=== PATIENT | male | born 1935 | race Caucasian/White ===

== ENCOUNTER 2016-11-05 20:50 | Emergency (ER) | payer MEDICARE, BC | END 2016-11-05 21:46 | disposition left against medical advice (07) | LOC: ER 20:50 | DX: Z53.21 Procedure and treatment not carried out due to patient leaving prior to being seen by health care provider (principal) ==

== ENCOUNTER 2016-12-14 14:16 | Emergency (ER) | payer MEDICARE, BC ==
[2016-12-14 15:10] LABS: Urine Appearance Clear; Urine Bilirubin Negative (NEGATIVE); Urine Blood Negative /ul (NEGATIVE); Urine Color Yellow; Urine Ketone Negative (NEGATIVE); Urine Protein Negative (NEGATIVE); Urine pH 6.5 pH (5.0-7.0)
[2016-12-14 15:11] LABS: Urine Bacteria None Seen; Urine Nitrite Negative (NEGATIVE); Urine RBC None Seen /hpf (0-5); Urine Urobilinogen Normal (NORMAL); Urine WBC None Seen /hpf (0-5)
[2016-12-14 15:15] VITALS: BP 142/80
--- NOTE | 2016-12-14 15:45 | ERNOTE ---
Back Pain ER HPI Date of Service: 12/14/16 Time Seen by Provider: 12/14/16 14:21 Source: patient Exam Limitations: other - patient seems to have some mild memory problems. Immunizations: IMMUNIZATION HX History of Influenza Vaccine Yes Home Medications: HOME MEDICATIONS Aspirin 325 mg PO DAILY 12/14/16 [Last Taken Unknown] Losartan/Hydrochlorothiazide [Losartan-Hctz 100-12.5 mg Tab] 1 each PO DAILY 09/19 [Last Taken Unknown] Metformin HCl [Metformin HCl ER] 1,000 mg PO BID 12/14/16 [Last Taken Unknown] Methocarbamol [Robaxin] 500 mg PO TID PRN #12 tablet 12/14/16 [Last Taken Unknown] Omeprazole 40 mg PO DAILY 12/14/16 [Last Taken Unknown] Potassium Chloride [Klor-Con 10] 10 meq PO TID 12/14/16 [Last Taken Unknown] Propranolol HCl [Inderal LA] 160 mg PO BID 12/14/16 [Last Taken Unknown] Simvastatin [Zocor] 20 mg PO HS 12/14/16 [Last Taken Unknown] Terazosin HCl [Hytrin] 5 mg PO HS 12/14/16 [Last Taken Unknown] Narrative: patient presents to the ED for low back pain. He relates that he has had this for some time and had x-rays a few months ago for this. It hurts in his low back and is worse with movement. No radiation of the pain. He had been taking ibuprofen for it and it was working but he was told to stop that and he is not sure why, Has been taking Tylenol. No new N/T/W. No loss of bowel or bladder control. Rest improves this pain, worse with twisting. This is just like the pain he has been having, nothing different about it. No abdominal pain. No CP or SOB. Timing: Reports: other - fluctuating intensity Quality/Severity: Reports: moderate Location of pain: Reports: lower back Activities at Onset: Reports: other - no fall, no trauma Recent Injury?: Reports: no Possible Precipitating Factor: Reports: none Modifying Factors - (Improves): Reports: other - rest Modifying Factors - (Worsens): Reports: other - movement Associated Symptoms: Denies: fever/chills, constipation/incontinence, nausea/ vomiting, problems urinating, difficulty walking, numbess/weakness in legs Prior Treament: Denies: recently seen Review of Systems - Review of Systems Constitutional: Absent: fever Respiratory: Absent: shortness of breath Cardiology: Absent: chest pain Gastrointestinal/Abdominal: Absent: abdominal pain Genitourinary: Absent: dysuria - Patient's Past Medical History Patient History - Medical: Diabetes Type 1, GERD Patient History - Cardiac/Respiratory: Hypertension, Hyperlipidemia Patient History - Cancer: No Hx of Cancer Patient History - Surgical Procedures: No surgical history Patient History - Other: None - Social History Living Situations: home Psych History: No pertinent hx - Immunizations History of Influenza Vaccine: Yes Physical Exam - Physical Exam General Appearance: Present: alert, no apparent distress Eye Exam: Normal inspection: bilateral Ears, Nose, Throat: Present: normal ENT inspection Neck: Present: normal inspection Respiratory: Present: no respiratory distress, no accessory muscle use, lungs clear Cardiovascular/Chest: Present: regular rate, rhythm Gastrointestinal/Abdominal: Present: normal bowel sounds, nontender, soft. Absent: no organomegaly, tenderness Back Exam: Present: other - There is completely reproducible tenderness bilateral low back musculature. No vertebral tendenress. No CVA tenderness. Clinically this is completely reproducible in the muscualture.. Absent: vertebral tenderness Extremity Exam: Present: normal range of motion Neurological Exam: Present: alert, no motor/sensory deficits, parking patroller II-XII nml as tested, other - Gait stable. No motor deficits. Nop cauda equina syndrome. Absent: motor weakness Skin Exam: Absent: skin rash ED Progress - Results and Orders Patient's Lab Results:: I have reviewed the patient's lab results. - Vital Signs Patient's Vital Signs:: I have reviewed the patient's vital signs. Vital Signs: Vital Signs 12/14/16 12/14/16 14:19 15:14 Temperature 36.3 C L Pulse Rate 75 78 Respiratory 12 12 Rate Blood Pressure 140/81 142/80 O2 Sat by Pulse 96 98 Oximetry - Progress/Reassessment Chief Complaint: Back Pain Progress Note-Subjective: 12/14/16 15:41 Nothing to suggest need for repeat imaging, nothing to suggest infectious process. No neuro deficits or cauda equina syndrome. Nothing to suggest intraabdominal process. He wishes to go home. Will utilize muscle relaxant. I discussed warning signs and reasons to return as well as the need for close f/u. Departure Clinical Impression: Back pain - Departure Disposition: Home self-care Condition: Stable Instructions: Back Pain, Adult Additional Instructions: Muscle relaxant as directed. Follow-up with your doctor in 2-3 days for a re- check. Return here for fever, numbness, tingling, weakness or if your condition worsens or changes in any way. Referrals: Sumeet Perry MD [Primary Care Provider] - Prescriptions: Methocarbamol [Robaxin] 500 mg PO TID PRN #12 tablet PRN Reason: Pain
== END 2016-12-14 15:49 | disposition home or self-care (01) ==
LOC: ER 14:16
DX: M54.5 Low back pain (principal); I10 Essential (primary) hypertension; E78.5 Hyperlipidemia, unspecified; K21.9 Gastro-esophageal reflux disease without esophagitis

== ENCOUNTER 2016-12-24 06:07 | Emergency (ER) | payer MEDICARE, BC ==
[2016-12-24 06:16] VITALS: BP 141/68
[2016-12-24] MEDS ORDERED: SODIUM CHLORIDE FOR INHALATION 3 ML VIAL.NEB IH ONE (06:24)
--- NOTE | 2016-12-24 06:28 | ERNOTE ---
Medical Problem HPI - General Chief Complaint: General Assessment Time Seen by Provider: 12/24/16 06:17 Source: patient, old records - Immun/Allergies/Home Medications Immunizations: IMMUNIZATION HX Immunizations Up to Date Yes History of Influenza Vaccine Yes Hx Pneumococcal Vaccination Yes Allergies/Adverse Reactions: Allergies Penicillins Allergy (Verified 12/24/16 06:16) dust mite Allergy (Uncoded 12/24/16 06:16) Home Medications: HOME MEDICATIONS Aspirin 325 mg PO DAILY 12/14/16 [Last Taken Unknown] Losartan/Hydrochlorothiazide [Losartan-Hctz 100-12.5 mg Tab] 1 each PO DAILY 09/19 [Last Taken Unknown] Metformin HCl [Metformin HCl ER] 1,000 mg PO BID 12/14/16 [Last Taken Unknown] Methocarbamol [Robaxin] 500 mg PO TID PRN #12 tablet 12/14/16 [Last Taken Unknown] Omeprazole 40 mg PO DAILY 12/14/16 [Last Taken Unknown] Potassium Chloride [Klor-Con 10] 10 meq PO TID 12/14/16 [Last Taken Unknown] Propranolol HCl [Inderal LA] 160 mg PO BID 12/14/16 [Last Taken Unknown] Simvastatin [Zocor] 20 mg PO HS 12/14/16 [Last Taken Unknown] Terazosin HCl [Hytrin] 5 mg PO HS 12/14/16 [Last Taken Unknown] - History of Present History Narrative: Pt states he awoke to phlegm in his throat. He was able to get some of it out but has been unable to get the rest out. Timing: constant Severity: mild Review of Systems - Review of Systems Constitutional: Present: recent illness - a cold for about a month. Absent: fever, chills EYE: Present: no symptoms reported ENT: Present: nose congestion, nasal drainage Respiratory: Present: cough. Absent: shortness of breath, orthopnea Cardiology: Present: no symptoms reported Gastrointestinal/Abdominal: Present: other - no difficulty swallowing Genitourinary: Present: no symptoms reported Musculoskeletal: Present: no symptoms reported Skin: Present: no symptoms reported Neurological: Present: no symptoms reported Endocrine: Present: no symptoms reported Hematologic/Lymphatic: Present: no symptoms reported Psych: Present: no symptoms reported - Patient's Past Medical History Patient History - Medical: Diabetes Type 1, GERD Patient History - Cardiac/Respiratory: Hypertension, Hyperlipidemia Patient History - Cancer: No Hx of Cancer Patient History - Surgical Procedures: No surgical history Patient History - Other: None - Social History Living Situations: home Psych History: No pertinent hx Smoking Status: Former smoker - Immunizations Immunizations Up to Date: Yes Hx Pneumococcal Vaccination: Yes History of Influenza Vaccine: Yes Physical Exam - Physical Exam General Appearance: Present: wd/wn, alert, no apparent distress Eye Exam: Normal inspection: bilateral, PERRL: bilateral Ears, Nose, Throat: Present: nasal congestion - b/l with mild erythema, other - minimal PND. Absent: pharyngeal erythema Neck: Present: normal inspection, nontender Respiratory: Present: no respiratory distress, normal breath sounds, no accessory muscle use, chest nontender, lungs clear Cardiovascular/Chest: Present: regular rate, rhythm, no murmur, normal peripheral pulses Extremity Exam: Present: normal inspection, normal range of motion Neurological Exam: Present: alert, oriented, normal mood/affect, no motor/ sensory deficits Skin Exam: Present: normal color, warm/dry Lymphatic Exam: Present: no adenopathy ED Progress - Vital Signs Patient's Vital Signs:: I have reviewed the patient's vital signs. Vital Signs: Vital Signs 12/24/16 06:10 Temperature 35.4 C L Pulse Rate 83 Respiratory 18 Rate Blood Pressure 141/68 O2 Sat by Pulse 94 Oximetry - Progress/Reassessment Chief Complaint: General Assessment Departure - Departure Clinical Impression: Upper respiratory infection Qualifiers: URI type: acute nasopharyngitis (common cold) Qualified Code(s): J00 - Acute nasopharyngitis [common cold] Disposition: Home self-care Condition: Good Instructions: Upper Respiratory Infection, Adult, [id number] Additional Instructions: Take mucinex or generic equivalent twice a day until feeling better. Follow up with your regular doctor if not improving Referrals: Sumeet Perry MD [Primary Care Provider] -
== END 2016-12-24 06:55 | disposition home or self-care (01) ==
LOC: ER 06:07
DX: J00 Acute nasopharyngitis [common cold] (principal); Z87.891 Personal history of nicotine dependence

== ENCOUNTER 2017-02-14 11:10 | Day surgery (SDC) | payer MEDICARE, BC ==
[~2017-02-14 11:10] MED LIST: ACETAMINOPHEN WITH CODEINE 1 EACH TABLET PO PRN; ONDANSETRON HCL/PF 2 MG/ML VIAL IV PRN; RINGER'S SOLUTION,LACTATED 1,000 ML IV PRN; ceFAZolin SODIUM 1 GM in DEXTROSE 5 % IN WATER 100 ML IV PRN; oxyCODONE HCL/ACETAMINOPHEN 1 TAB TABLET PO PRN
[2017-02-14] MEDS ORDERED: ceFAZolin SODIUM 1 GM in DEXTROSE 5 % IN WATER 100 ML IV PRN ×2 (11:42)
[2017-02-14] MEDS ORDERED: RINGER'S SOLUTION,LACTATED 1,000 ML IV ONE (12:06)
[2017-02-14] MEDS ORDERED: BUPIVACAINE HCL 50 ML VIAL IJ ONE ×2 (12:35)
[2017-02-14] MEDS ORDERED: BACITRACIN ZINC 30 APPL TUBE TP ONE (12:48)
[2017-02-14 14:52] VITALS: BP 124/65
== END 2017-02-14 11:11 | disposition home or self-care (01) ==
LOC: AMB 11:10
PROVIDERS: ATTEND Urology
PROC: 0VTTXZZ Resection of Prepuce, External Approach (ICD-10-PCS; principal; 2017-02-14 12:00)
DX: N48.1 Balanitis (principal); N47.1 Phimosis; Z68.35 Body mass index [BMI] 35.0-35.9, adult; Z87.891 Personal history of nicotine dependence

== ENCOUNTER 2017-06-09 08:04 | Inpatient (IN) | payer MEDICARE, BC ==
[~2017-06-09 08:04] MED LIST changes: -ACETAMINOPHEN WITH CODEINE 1 EACH TABLET PO PRN; +MORPHINE SULFATE 15 MG TABLET.SA PO PRN; -ONDANSETRON HCL/PF 2 MG/ML VIAL IV PRN; -RINGER'S SOLUTION,LACTATED 1,000 ML IV PRN; +ROPIVACAINE HCL/PF 100 MG, KETOROLAC TROMETHAMINE 30 MG, EPINEPHrine 0.2 MG in NORMAL S... IJ PRN; +TRANEXAMIC ACID 1,000 MG in NORMAL SALINE 100 ML IV PRN; +ceFAZolin SODIUM 1 GM VIAL IV PRN; -ceFAZolin SODIUM 1 GM in DEXTROSE 5 % IN WATER 100 ML IV PRN; -oxyCODONE HCL/ACETAMINOPHEN 1 TAB TABLET PO PRN
[2017-06-09] MEDS: RINGER'S SOLUTION,LACTATED 1,000 ML IV PRN ×4 (09:05→19:42)
--- NOTE | 2017-06-09 11:04 | PREOP NOTE ---
Preoperative Progress Note - Preoperative Changes Changes to Preop Condition?: No Changes
[2017-06-09] MEDS ORDERED: RINGER'S SOLUTION,LACTATED 1,000 ML IV ONE ×2 (12:00→13:29)
[2017-06-09] MEDS ORDERED: MAG HYDROX/ALUMINUM HYD/SIMETH 30 ML UDC PO PRN (14:29)
[2017-06-09] MEDS ORDERED: PROMETHAZINE HCL 5 MG in DEXTROSE 5 % IN WATER 50 ML IV PRN ×2 (14:29)
[2017-06-09] MEDS ORDERED: MAGNESIUM HYDROXIDE 30 ML UDC PO PRN (14:29)
[2017-06-09] MEDS ORDERED: ZOLPIDEM TARTRATE 5 MG TABLET PO PRN (14:29)
[2017-06-09] MEDS ORDERED: HYDROmorphone HCL 1 MG/ML DISP.SYRIN IV PRN (14:29)
[2017-06-09] MEDS ORDERED: ACETAMINOPHEN 500 MG TABLET PO PRN (14:29)
--- NOTE | 2017-06-09 14:34 | OR ---
Operative Report - Dictated Report Narrative: Date: 06/09/2017 Preoperative diagnosis: Right Knee degenerative joint disease. Postoperative diagnosis: Right Knee degenerative joint disease. Procedure: Right Total knee arthroplasty. Surgeon: Shoaib Florian M.D. [employer] Service Rater: Shawn Hwang PA-C Anesthesia: Spinal with regional block and local periarticular joint injection. Complications: None Specimens: Bone for disposal. Estimated blood loss: Minimal. Tourniquet time: 120 Minutes at 325 millimeters of mercury. Retained implants: Depuy Attune size 7 right lugged cemented posterior stabilized femoral component. Size 7 fixed-bearing cemented tibial platform. 7 by 8 millimeter posterior stabilized cross-linked tibial insert. 41 millimeter medialized patella button. Indications: Mr. Xie is a 81-year-old gentleman who has bilateral knee pain and arthrosis with a right greater than left this time. He wanted to have his right knee worked on. This patient was followed in my clinic for period of time with significant complaints of right knee pain consistent with arthritic changes. He had failed conservative measures including, but not limited to, activity modification, passage of time, medications, and other conservative measures. Patient wished to proceed with surgical treatment. The risks, benefits, and alternatives were discussed in clinic. The risks of , blood clots, bleeding, infection, nerve/tendon blood vessel/ injury, malposition of components, intraoperative fracture, postoperative limited range of motion, persistent pain, failure of components, and need for additional procedures. Patient wished to proceed consent was obtained after answering all questions. Procedure: After marking the correct extremity on the floor, the patient was taken to the operating room. A timeout was performed. IV antibiotics consisting of Ancef were administered prior to the procedure. A regional followed by spinal anesthetic was induced by anesthesia, per my request, on the operative table with all bony prominences well-padded. Seals catheter was placed, and a bump was placed under the operative side buttock. SCDs and HUDSON hose were utilized on the nonoperative leg. A well-padded tourniquet was applied to the operative thigh. The operative leg was then pre-scrubbed with alcoho,l prepped, and draped in a standard sterile fashion. After exsanguinating the extremity with an Esmarch bandage, the tourniquet was inflated. After marking out the anterior knee for standard incision centered over the patella, the skin was incised and dissected down to the joint retinaculum. The joint retinaculum was marked out as well as the horizontal axis of the patella, and a standard medial parapatellar arthrotomy was then made. The most proximal aspect of the quadriceps tendon and the patella tendon insertion were protected from release. A partial synovectomy was performed as well as a resection of the infrapatellar fat pad. The distal femoral fat pad proximal to the trochlea was also resected using cautery. The soft tissues were elevated off the medial aspect of the proximal tibia using a Ronquillo elevator ensuring that we did not transect the medial collateral ligament. Upon initial evaluation range of motion was approximately 10 degrees to 100 degrees of flexion. There were signs of advanced arthrosis in the medial, lateral, and patellofemoral joint spaces. There were large marginal osteophytes which were removed with a rongeur. The knee was hyperflexed and the patella was tucked laterally. Protecting the surrounding soft tissues with Homans, an entry drill was placed down the femoral canal using Whitesides line for guidance into the entry point. The intramedullary femoral alignment tg was utilized in order to cut the distal femur in 5 degrees of valgus resecting 12 millimeters of bone. Next the distal femur was sized to a size 7. A posterior referencing guide was utilized to place the distal femoral cutting block in 3 degrees of external rotation. This was pinned into place. The rotation was confirmed both visually and based on anatomic landmarks. The 4 in 1 cutting jig of the appropriate size was utilized in order to make all bony cuts. The angle wing was used to ensure no notching. Retractors were utilized in order to protect surrounding soft tissues. This cut did not result in any excessive notching. We then cut the box centered over the distal femur. This allowed for resection of the anterior and posterior cruciate ligaments. I then turned my attention to the preparation of the tibia. Using an extra medullary tibial alignment tg, 4 millimeters of bone was resected off the medial articular surface. This was made perpendicular to the mechanical axis of the joint with the alignment tg centered over the ankle mortise. The alignment tg was checked and was noted to be parallel to the mechanical axis, centered over the medial one third of the tibial tubercle, paralleling the anterior surface of the tibia. We then turned our attention to the remaining meniscus and soft tissues. These were removed while protecting the surrounding ligaments and soft tissues. The marginal osteophytes off the anterior, posterior, medial, lateral aspects of the femur and tibia were removed. The tibia was sized out to a size 7. Next the tibia was drilled and punched in an externally rotated position. Next the trial femur and a series of tibial inserts were utilized in order to allow for full extension and maximal flexion. It was found that a 8 millimeter insert gave the best range of motion and stability at multiple flexion points as well as at full extension there was less than 2 mm of gapping both medially and laterally. There is minimal anterior translation with the knee at 90 degrees of flexion and no signs of being able to dislocate the knee. The patella was then prepared. The initial thickness was 24 millimeters. This was reamed down to 14 millimeters parallel to the anterior surface of the patella. It was sized out to a size 41 medialized patella button. This was then drilled and trialed. Without any medial restraint the patella tracked appropriately and did not sublux or dislocate. At this point, it was felt these were the appropriate sized implants, and all trials were removed. The standard periarticular joint injection consisting of ropivacaine, Toradol, and epinephrine were injected into the periarticular joint tissues. The bony surfaces were thoroughly irrigated with a pulsatile- suction saline irrigation device. A bone plug from the prior resected anterior chamfer cut was placed into the drill hole at the distal femur. The bony surfaces were then dried in preparation for placement of the implants. The cement was vacuum mixed per the guest relations executive's instructions. The cement was placed on the dry bony surfaces and posterior aspect of the implants. The implants were impacted into place, removing all extruded cement. At this point anesthesia administered tranexamic acid per protocol intravenously. The knee was placed in extension with axial loading with the trial insert while the cement cured. Once the cement cured, all remaining extruded cement was removed. The knee was placed through a range of motion with the trial insert to ensure appropriate range of motion and stability. Final range of motion was approximately 0 to 120 degrees. The knee was again thoroughly irrigated with pulsatile saline lavage. The final polyethylene insert was then impacted into place ensuring no retained soft tissues. The remaining periarticular joint injection was injected. A medium Hemovac drain was placed exiting superior laterally. The knee was then placed over a triangle and the arthrotomy was closed with interrupted #1 Vicryl after thoroughly irrigating the joint. The deep and subcutaneous tissues were closed with interrupted oh and 3-0 Vicryl respectively. Skin was closed with a running subcutaneous 3-0 Monocryl and Prineo Dermabond dressing. 4 x 4's, Sof-Rol, and a full leg Louis wrap were applied. All sponge, needle, blade, and instrument counts were correct prior to closing the wounds. Postoperative condition: The patient was awoken and transferred to the postanesthesia care unit in stable condition. Plan is to be admitted to the inpatient medical/surgical floor postoperatively for 24 hours of IV antibiotics , physical therapy, occupational therapy, and medical comanagement. Patient will be weightbearing as tolerated with range of motion as tolerated. DVT prophylaxis will be with SCDs, HUDSON hose, and pharmacological anticoagulation. Anticipated hospital stay is approximately 2-4 days.
--- NOTE | 2017-06-09 15:28 | OR ---
Anesthesia Procedure Note - Anesthesia Procedure Note Narrative: Vital Signs - Last Taken Temp 36.6 C 06/09/17 15:21 Pulse 80 06/09/17 15:21 Resp 16 06/09/17 15:21 BP 137/89 06/09/17 15:21 Pulse Ox 98 06/09/17 15:21 O2 Oxygen Delivery Method Room Air 06/09/17 15:26 ANESTHESIA PROCEDURE NOTE Date of procedure: 06/09/2017. Time of procedure: 1150. Performed by: Tito Green CRNA Decatizer: Luz Maria Hendrix RN . Preprocedure diagnosis: Right knee DJD. Postop analgesia.. Post procedure diagnosis: Same. Procedure: Ultrasound-guided right femoral nerve block. Indications: Postoperative analgesia.. Findings: Patient brought to operating room #2 and placed in the supine position. Patient was sedated. Right inguinal area was prepped with ChloraPrep. Ultrasound machine and nerve stimulator was used to identify right femoral nerve. A 22-gauge Stimuplex regional block needle was used to inject 30 mL of 0.25% Marcaine with epinephrine 1 200,000 around the femoral nerve. Images were retained. Regional block needle was removed intact. EBL: Minimal. Fluids: N/A. Specimen: N/A. Post procedure condition: The patient tolerated the procedure well. No complications were noted. Thank you for this consultation Tito Green CRNA
[2017-06-09] MEDS: KETOROLAC TROMETHAMINE 15 MG/ML VIAL IV SCH ×2 (15:29→20:45)
[2017-06-09] MEDS: ceFAZolin SODIUM 1 GM in DEXTROSE 5 % IN WATER 100 ML IV SCH ×2 (18:43)
[2017-06-09] MEDS: POTASSIUM CHLORIDE 10 MEQ TABLET.SA PO SCH (18:43)
[2017-06-09] MEDS: TAMSULOSIN HCL 0.4 MG CAP.SR.24H PO SCH (18:43)
[2017-06-09] MEDS: MORPHINE SULFATE 15 MG TABLET.SA PO SCH (20:44)
[2017-06-09] MEDS: PANTOPRAZOLE SODIUM 40 MG TABLET.EC PO SCH (20:46)
[2017-06-09] MEDS: SIMVASTATIN 20 MG TABLET PO SCH (20:46)
[2017-06-09] MEDS: SENNOSIDES/DOCUSATE SODIUM 1 TAB TABLET PO SCH (20:46)
[2017-06-09] MEDS: FINASTERIDE 5 MG TABLET PO SCH (20:52)
[2017-06-09] MEDS: oxyCODONE HCL/ACETAMINOPHEN 1 TAB TABLET PO PRN (22:48)
[2017-06-10] MEDS: ceFAZolin SODIUM 1 GM in DEXTROSE 5 % IN WATER 100 ML IV SCH ×4 (01:40→05:04)
[2017-06-10] MEDS: RINGER'S SOLUTION,LACTATED 1,000 ML IV PRN (04:27)
[2017-06-10] MEDS: KETOROLAC TROMETHAMINE 15 MG/ML VIAL IV SCH ×4 (04:28→20:40)
[2017-06-10 06:44] LABS: Hematocrit 35.3 % (42.0-52.0); Hemoglobin 11.7 gm/dL (13.5-18.0); Mean Cell Volume 92.2 fl (78-100); Mean Corpuscular Hemoglobin 30.5 pg (27-31); Mean Corpuscular Hgb Conc 33.1 g/dl (32-36); Mean Platelet Volume 9.1 fl (6.0-9.5); Platelet Count 204 K/mm3 (150-450); Red Blood Count 3.83 M/mm3 (4.7-6.0); Red Cell Distribution Width 13.2 % (11.5-14.0)
[2017-06-10 06:55] LABS: Anion Gap 9.4 mmol/L (6.8-13.8); BUN/Creatinine Ratio 13.5 (9.0-21.6); Carbon Dioxide 29.3 mmol/L (24-32.6); Estimated Creat Clear 56.7; Potassium 3.7 mmol/L (3.4-4.6)
--- NOTE | 2017-06-10 08:21 | PN ---
Subjective - Date and Time Seen Date: 06/10/17 Time: 08:16 Subjective Narrative: Reports some mild nausea this am. Did eat breakfast. Got up to chair this am for breakfast. Reports moderate pain. No other complaints. Objective Objective Narrative: Bandages C/D/I. N/V intact PF/DF ankle. Calf supple. Drain intact. - Vitals Vitals: Last Vital Signs Temp 37 C 06/10/17 07:06 Pulse 78 06/10/17 07:06 Resp 18 06/10/17 07:06 BP 132/67 06/10/17 07:06 Pulse Ox 94 06/10/17 07:06 - Abnormal Lab Findings Abnormal Lab Findings: Abnormal Lab Results 06/10/17 06/10/17 Range/Units 06:35 06:35 RBC 3.83 L (4.7-6.0) M/mm3 Hgb 11.7 L (13.5-18.0) gm/dL Hct 35.3 L (42.0-52.0) % Random Glucose 144 H (70-110) mg/dL - Exam Constitutional: Present: Alert, Cooperative, No distress Cauti Physician Documentation - Urinary Catheter Management Urethral ([place]) Date of Insertion: 06/09/17 Time of Insertion: 12:44 Assessment/Plan - Problems/Diagnosis (1) Status post total right knee replacement Problem: Acute Narrative: PT, anticoagulation, pain control, if drain output decreasing today can pull, costa out today (2) Acute blood loss anemia Problem: Acute Narrative: asymptomatic at this time, recheck labs tomorrow am (3) Diabetes 1.5, managed as type 2 Problem: Chronic (4) Hypertension Problem: Chronic (5) Hyperlipidemia Problem: Chronic (6) Benign prostatic hyperplasia (BPH) with post-void dribbling Problem: Chronic
[2017-06-10] MEDS: ONDANSETRON HCL/PF 2 MG/ML VIAL IV PRN ×2 (09:11→13:55)
[2017-06-10] MEDS: MULTIVIT-MIN/FA/LYCOPEN/LUTEIN 1 TAB TABLET PO SCH (09:12)
[2017-06-10] MEDS: MORPHINE SULFATE 15 MG TABLET.SA PO SCH ×2 (09:12→20:40)
[2017-06-10] MEDS: HYDROCHLOROTHIAZIDE 12.5 MG CAPSULE PO SCH (09:12)
[2017-06-10] MEDS: POTASSIUM CHLORIDE 10 MEQ TABLET.SA PO SCH ×3 (09:12→16:33)
[2017-06-10] MEDS: LOSARTAN POTASSIUM 50 MG TABLET PO SCH (09:12)
[2017-06-10] MEDS: ATENOLOL 50 MG TABLET PO SCH (09:13)
[2017-06-10] MEDS: FINASTERIDE 5 MG TABLET PO SCH ×2 (09:14→20:41)
[2017-06-10] MEDS: ENOXAPARIN SODIUM 40 MG/0.4 ML SYRG SC SCH (13:44)
[2017-06-10] MEDS: oxyCODONE HCL/ACETAMINOPHEN 1 TAB TABLET PO PRN (16:20)
[2017-06-10] MEDS: TAMSULOSIN HCL 0.4 MG CAP.SR.24H PO SCH (18:31)
[2017-06-10] MEDS: SIMVASTATIN 20 MG TABLET PO SCH (20:40)
[2017-06-10] MEDS: SENNOSIDES/DOCUSATE SODIUM 1 TAB TABLET PO SCH (20:40)
[2017-06-10] MEDS: PANTOPRAZOLE SODIUM 40 MG TABLET.EC PO SCH (20:41)
[2017-06-10] MEDS: diphenhydrAMINE HCL 50 MG/ML VIAL IV PRN (23:01)
[2017-06-11] MEDS: KETOROLAC TROMETHAMINE 15 MG/ML VIAL IV SCH ×2 (02:58→09:25)
[2017-06-11 05:58] LABS: Hematocrit 34.9 % (42.0-52.0); Hemoglobin 11.4 gm/dL (13.5-18.0); Mean Cell Volume 93.6 fl (78-100); Mean Corpuscular Hemoglobin 30.6 pg (27-31); Mean Corpuscular Hgb Conc 32.7 g/dl (32-36); Mean Platelet Volume 9.5 fl (6.0-9.5); Platelet Count 214 K/mm3 (150-450); Red Blood Count 3.73 M/mm3 (4.7-6.0); Red Cell Distribution Width 13.3 % (11.5-14.0); White Blood Count 8.8 K/mm3 (4.0-10.5)
[2017-06-11 06:05] LABS: Anion Gap 10.2 mmol/L (6.8-13.8); BUN/Creatinine Ratio 11.2 (9.0-21.6); Carbon Dioxide 29.7 mmol/L (24-32.6); Estimated Creat Clear 55.1; Potassium 3.9 mmol/L (3.4-4.6)
[2017-06-11] MEDS: oxyCODONE HCL/ACETAMINOPHEN 1 TAB TABLET PO PRN (06:36)
--- NOTE | 2017-06-11 08:07 | PN ---
Subjective - Date and Time Seen Date: 06/11/17 Time: 08:03 Subjective Narrative: Complaining of mild dizziness this morning no chest pain no shortness of breath Objective - Review of Systems Generalized/Overall Review: Reports: No Symptoms Reported EENTM: Reports: No Symptoms Reported Respiratory: Reports: No Symptoms Reported Cardiac: Reports: No Symptoms Reported Abdominal: Reports: No Symptoms Reported Genitourinary Symptoms: Reports: No Symptoms Reported - Vitals Vitals: Last Vital Signs Temp 36.3 C L 06/11/17 07:13 Pulse 93 06/11/17 03:11 Resp 18 06/11/17 07:13 BP 143/58 06/11/17 07:13 Pulse Ox 95 06/11/17 07:13 - Abnormal Lab Findings Abnormal Lab Findings: Abnormal Lab Results 06/11/17 06/11/17 Range/Units 05:30 05:30 RBC 3.73 L (4.7-6.0) M/mm3 Hgb 11.4 L (13.5-18.0) gm/dL Hct 34.9 L (42.0-52.0) % Random Glucose 142 H (70-110) mg/dL - Exam Constitutional: Present: Alert, Oriented x3, Cooperative ENT Exam: Present: normal ENT inspection Respiratory: Present: lungs clear Cardiovascular/Chest: Present: regular rate, rhythm, no JVD Abdomen: Present: soft, nontender Cauti Physician Documentation - Urinary Catheter Management Urethral (Seals) Date of Insertion: 06/09/17 Time of Insertion: 12:44 Date of Removal: 06/10/17 Time of Removal: 11:45 Assessment/Plan Plan Narrative: continue diet and metformin - Problems/Diagnosis (1) Diabetes Problem: Acute Qualifiers: Diabetes mellitus type: type 2 Diabetes mellitus complication status: without complication (2) Diabetes 1.5, managed as type 2 Problem: Chronic
[2017-06-11] MEDS: MULTIVIT-MIN/FA/LYCOPEN/LUTEIN 1 TAB TABLET PO SCH (08:45)
[2017-06-11] MEDS: LOSARTAN POTASSIUM 50 MG TABLET PO SCH (08:46)
[2017-06-11] MEDS: POTASSIUM CHLORIDE 10 MEQ TABLET.SA PO SCH ×3 (08:47→16:57)
[2017-06-11] MEDS: HYDROCHLOROTHIAZIDE 12.5 MG CAPSULE PO SCH (08:48)
[2017-06-11] MEDS: ATENOLOL 50 MG TABLET PO SCH (08:48)
[2017-06-11] MEDS: MORPHINE SULFATE 15 MG TABLET.SA PO SCH ×2 (08:48→20:21)
--- NOTE | 2017-06-11 10:10 | PN ---
Subjective - Date and Time Seen Date: 06/11/17 Time: 10:07 Subjective Narrative: Subjective: Reports minimal pain. Was able to walk in the [place] with therapy. Pain is well-controlled. Voiding without any complications. Tolerating by mouth intake. Denies any nausea or vomiting. Denies calf pain. Slept well. Physical exam: Alert and oriented to person, place and time Right lower Extremity: Palpable dorsalis pedis pulse. Sensation grossly intact to light touch. Dressings clean and dry. Able to flex and extend ankle and toes. No excessive drainage. Calf and thigh are soft and nontender. Assessment: Postop day 2 status post right total knee arthroplasty. Plan: Continue with physical and occupational therapy weightbearing as tolerated. Continue with anticoagulation. Pain control with goal to rely on oral medications. Continue bowel regimen. Will need 6 weeks with walker or assitive device to protect joint while ambulating during the recovery process. Discharge planning. Okay to discharge to home once he is able to do stairs. Objective - Vitals Vitals: Last Vital Signs Temp 36.3 C L 06/11/17 07:13 Pulse 84 06/11/17 08:48 Resp 18 06/11/17 07:13 BP 143/58 06/11/17 08:48 Pulse Ox 95 06/11/17 07:13 - Abnormal Lab Findings Abnormal Lab Findings: Abnormal Lab Results 06/11/17 06/11/17 Range/Units 05:30 05:30 RBC 3.73 L (4.7-6.0) M/mm3 Hgb 11.4 L (13.5-18.0) gm/dL Hct 34.9 L (42.0-52.0) % Random Glucose 142 H (70-110) mg/dL [facility] Physician Documentation - Urinary Catheter Management Urethral (Seals) Date of Insertion: 06/09/17 Time of Insertion: 12:44 Date of Removal: 06/10/17 Time of Removal: 11:45 Assessment/Plan - Problems/Diagnosis (1) Acute blood loss anemia Problem: Acute (2) Diabetes Problem: Chronic Qualifiers: Diabetes mellitus type: type 2 Diabetes mellitus complication status: without complication (3) Status post total right knee replacement Problem: Acute (4) Benign prostatic hyperplasia (BPH) with post-void dribbling Problem: 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
[2017-06-11] MEDS: ENOXAPARIN SODIUM 40 MG/0.4 ML SYRG SC SCH (13:06)
[2017-06-11] MEDS: ONDANSETRON HCL/PF 2 MG/ML VIAL IV PRN (18:33)
[2017-06-11] MEDS: TAMSULOSIN HCL 0.4 MG CAP.SR.24H PO SCH (18:34)
[2017-06-11] MEDS: FINASTERIDE 5 MG TABLET PO SCH (20:21)
[2017-06-11] MEDS: SENNOSIDES/DOCUSATE SODIUM 1 TAB TABLET PO SCH (20:21)
[2017-06-11] MEDS: SIMVASTATIN 20 MG TABLET PO SCH (20:21)
[2017-06-11] MEDS: PANTOPRAZOLE SODIUM 40 MG TABLET.EC PO SCH (20:21)
[2017-06-11] MEDS: diphenhydrAMINE HCL 50 MG/ML VIAL IV PRN (20:46)
[2017-06-12] MEDS: oxyCODONE HCL/ACETAMINOPHEN 1 TAB TABLET PO PRN ×2 (03:17→07:44)
[2017-06-12 08:06] VITALS: BP 154/62
--- NOTE | 2017-06-12 08:22 | PN ---
Subjective - Date and Time Seen Date: 06/12/17 Time: 08:20 Subjective Narrative: no new complaint Objective - Review of Systems Generalized/Overall Review: Reports: No Symptoms Reported EENTM: Reports: No Symptoms Reported Respiratory: Reports: No Symptoms Reported Cardiac: Reports: No Symptoms Reported Abdominal: Reports: No Symptoms Reported Genitourinary Symptoms: Reports: No Symptoms Reported Skin: Reports: No Symptoms Reported Endocrine: Reports: No Symptoms Reported - Vitals Vitals: Last Vital Signs Temp 36.8 C 06/12/17 08:05 Pulse 102 H 06/12/17 08:05 Resp 20 06/12/17 08:05 BP 154/62 06/12/17 08:05 Pulse Ox 96 06/12/17 08:05 - Exam Constitutional: Present: Alert, Oriented x3, Cooperative Respiratory: Present: lungs clear Cardiovascular/Chest: Present: regular rate, rhythm Skin Exam: Present: normal color, warm/dry Appearance: Present: appropriate appearance [facility] Physician Documentation - Urinary Catheter Management Urethral (Seals) Date of Insertion: 06/09/17 Time of Insertion: 12:44 Date of Removal: 06/10/17 Time of Removal: 11:45 Assessment/Plan Plan Narrative: no change in his diabetes management - Problems/Diagnosis (1) Diabetes Problem: Chronic Qualifiers: Diabetes mellitus type: type 2 Diabetes mellitus complication status: without complication (2) Diabetes 1.5, managed as type 2 Problem: Chronic
--- NOTE | 2017-06-12 08:46 | DS ---
(1) Status post total right knee replacement Problem: Acute (2) Acute blood loss anemia Problem: Acute (3) Diabetes 1.5, managed as type 2 Problem: Chronic (4) Hypertension Problem: Chronic (5) Hyperlipidemia Problem: Chronic (6) Benign prostatic hyperplasia (BPH) with post-void dribbling Problem: Chronic Description of Stay: Mr. araya was admitted to the floor after undergoing right total knee arthroplasty. Tolerated this well. Was admitted to the floor postoperatively for 24 hours of IV antibiotics, pain control, medical comanagement, and occupational and physical therapy. OT and PT were consulted to assist with activities of daily living and ambulation. Was made weightbearing as tolerated with range of motion as tolerated. Pain was initially controlled with IV regimen. This was transitioned to oral once tolerating a by mouth intake. Was resumed on home diet and medications. Had a Seals catheter inserted and the operating room which was discontinued on postoperative day 1. A drain was placed intraoperatively into the knee which was discontinued on postoperative day 1. Lovenox SCD and HUDSON hose were utilized for DVT prophylaxis. Vital signs remained stable to the hospital course. Serial labs were obtained which showed a final hemoglobin of 11.4 grams. BMP was reviewed and was stable. Physical examination throughout the hospital course showed an extremity that had sensation that was intact to light touch, palpable pulses, a benign wound, motor intact to the toes, ankle, and knee. Knee range of motion was approximately 5 degrees to 80 degrees. Once an oral pain regimen was tolerated and physical therapy goals were met, it was felt that they were stable for discharge to home. Instructions: Continue with weightbearing as tolerated and range of motion as tolerated. It is OK to shower on the wound if it is not draining. If you note any drainage or for comfort you can cover with dry gauze and tape. Change every 2-3 days as needed. Continue with physical therapy. Resume home diet. Report any fever over 101.5 Fahrenheit, uncontrolled pain, increased drainage, foul odor of drainage, new or increased calf pain or shortness of breath, or any other significant complaints. A 325mg dialy aspirin will be started after finishing anticoagulation if not allergic. Continue with HUDSON hose on the operative extremity until instructed otherwise. No driving until instructed otherwise. Follow up in approximately 10-14 days. Procedures Performed: see notes below List Procedures: Right total knee arthroplasty Discharge Disposition: [facility] Disposition: [facility] Condition: Good Discharge Activity: Weight bearing Discharge Diet: Low salt Referrals: Sumeet Perry MD [Primary Care Provider] - Additional Patient Instructions (free text): Follow-up in the office with Dr. Florian on 06/24/17@10:45am. Prescriptions (Any new or edited meds): Enoxaparin Sodium [Lovenox] 40 mg SC Q24H #7 disp.syrin Morphine Sulfate [Ms Contin] 15 mg PO Q12H #20 tablet.sa Sennosides/Docusate Sodium [Senokot-S] 2 tab PO HS #30 tablet oxyCODONE HCL/ACETAMINOPHEN [Percocet 5 MG/325 MG] 2 tab PO Q4H PRN #90 tablet PRN Reason: Moderate Pain Complete Home Medications List: Complete Home Medication List: Aspirin 325 mg PO HS 12/14/16 Losartan/Hydrochlorothiazide [Losartan-Hctz 100-12.5 mg Tab] 1 each PO DAILY 09/19 Omeprazole 40 mg PO HS 12/14/16 Potassium Chloride [Klor-Con 10] 10 meq PO TID 12/14/16 Simvastatin [Zocor] 20 mg PO HS 12/14/16 Blood-Glucose Meter [Blood Glucose Monitoring] 1 each MC DAILY 02/06/17 metFORMIN HCL [Glucophage] 1,000 mg PO BIDWM 02/06/17 Atenolol [Tenormin] 50 mg PO DAILY 05/30/17 Finasteride [Proscar] 5 mg PO DAILY 05/30/17 Tamsulosin HCl [Flomax] 0.4 mg PO HS 05/30/17 Multivit-Mins/Iron/Folic/Lycop [Centrum Men's Tablet] 1 each PO DAILY 06/09/17 Enoxaparin Sodium [Lovenox] 40 mg SC Q24H #7 disp.syrin 06/12/17 Morphine Sulfate [Ms Contin] 15 mg PO Q12H #20 tablet.sa 06/12/17 Sennosides/Docusate Sodium [Senokot-S] 2 tab PO HS #30 tablet 06/12/17 oxyCODONE HCL/ACETAMINOPHEN [Percocet 5 MG/325 MG] 2 tab PO Q4H PRN #90 tablet 06/12/17
[2017-06-12] MEDS: MULTIVIT-MIN/FA/LYCOPEN/LUTEIN 1 TAB TABLET PO SCH (09:34)
[2017-06-12] MEDS: LOSARTAN POTASSIUM 50 MG TABLET PO SCH (09:38)
[2017-06-12] MEDS: HYDROCHLOROTHIAZIDE 12.5 MG CAPSULE PO SCH (09:39)
[2017-06-12] MEDS: POTASSIUM CHLORIDE 10 MEQ TABLET.SA PO SCH (09:39)
[2017-06-12] MEDS: ATENOLOL 50 MG TABLET PO SCH (09:39)
[2017-06-12] MEDS: MORPHINE SULFATE 15 MG TABLET.SA PO SCH (09:41)
== END 2017-06-12 10:19 | DRG 470 ==
LOC: MS 08:04
PROVIDERS: ADMIT Orthopaedic Surgery; ATTEND Orthopaedic Surgery
PROC: 0SRC0J9 Replacement of Right Knee Joint with Synthetic Substitute, Cemented, Open Approach (ICD-10-PCS; principal; 2017-06-09 12:30)
DX: M17.11 Unilateral primary osteoarthritis, right knee (principal); D62 Acute posthemorrhagic anemia; I10 Essential (primary) hypertension; E78.5 Hyperlipidemia, unspecified; E11.9 Type 2 diabetes mellitus without complications; N40.0 Benign prostatic hyperplasia without lower urinary tract symptoms; Z79.82 Long term (current) use of aspirin
CPT/HCPCS: 27447; 36415; 73560; 80048; 85027; 97110; 97116; 97162; 97166; J2405

== ENCOUNTER 2017-08-22 07:35 | Day surgery (SDC) | payer MEDICARE, BC ==
[~2017-08-22 07:35] MED LIST changes: +CIPROFLOXACIN HCL 500 MG TABLET PO PRN; -MORPHINE SULFATE 15 MG TABLET.SA PO PRN; -ROPIVACAINE HCL/PF 100 MG, KETOROLAC TROMETHAMINE 30 MG, EPINEPHrine 0.2 MG in NORMAL S... IJ PRN; -TRANEXAMIC ACID 1,000 MG in NORMAL SALINE 100 ML IV PRN; -ceFAZolin SODIUM 1 GM VIAL IV PRN
[2017-08-22] MEDS ORDERED: LIDOCAINE HCL 10 APPL CARTRIDGE TP ONE (08:16)
[2017-08-22 13:10] VITALS: BP 134/70
== END 2017-08-22 07:36 | disposition home or self-care (01) ==
LOC: AMB 07:35
PROVIDERS: ATTEND Urology
PROC: 3E1K88X Irrigation of Genitourinary Tract using Irrigating Substance, Via Natural or Artificial Opening Endoscopic, Diagnostic (ICD-10-PCS; 2017-08-22)
PROC: 0TJB8ZZ Inspection of Bladder, Via Natural or Artificial Opening Endoscopic (ICD-10-PCS; principal; 2017-08-22 08:55)
DX: N40.1 Benign prostatic hyperplasia with lower urinary tract symptoms (principal); N13.8 Other obstructive and reflux uropathy; E66.9 Obesity, unspecified; Z68.34 Body mass index [BMI] 34.0-34.9, adult; Z87.891 Personal history of nicotine dependence